=== PATIENT | female | born 1980 | race Caucasian/White ===

== ENCOUNTER 2016-05-28 02:20 | Emergency (ER) | payer OTHER ==
[~2016-05-28 02:20] MED LIST: CARAFATE 1 GM TA1 GM PO; LANOXIN TAB0.125 MG PO; LOPRESSOR 25 MG25 MG PO; PREVACID30 MG PO; PROZAC40 MG PO; TRILEPTAL600 MG PO; VITAMIN D50000 UNIT PO; VITAMIN E400 UNI5 PO; ZANTAC150 MG PO
[2016-05-28 04:52] LABS: HEMOGLOBIN 11.5 gm/dl (12.3-15.3); RED BLOOD COUNT 4.94 M/UL (4.00-5.10); WHITE BLOOD COUNT 13.2 K/UL (4.5-11.0)
[2016-05-28 04:54] LABS: BUN/CREATININE RATIO 11 (0-10)
== END 2016-05-28 09:00 | disposition home or self-care (01) ==
LOC: ER1 02:20
PROVIDERS: Physician Assistant
DX: E86.0 Dehydration (principal); E87.6 Hypokalemia; R10.30 Lower abdominal pain, unspecified; Z88.1 Allergy status to other antibiotic agents; Z88.5 Allergy status to narcotic agent; Z88.6 Allergy status to analgesic agent; Z88.8 Allergy status to other drugs, medicaments and biological substances
CPT/HCPCS: 36415; 80053; 81001; 83690; 83735; 85025; 93005; 96374; 96375; 96376; 99284; C9113; J0780; J2270; J2405; J2550

== ENCOUNTER 2016-06-02 15:39 | Emergency (ER) | payer OTHER | END 2016-06-02 15:45 | disposition left against medical advice (07) | LOC: ER1 15:39 | DX: Z53.21 Procedure and treatment not carried out due to patient leaving prior to being seen by health care provider (principal) ==

== ENCOUNTER 2016-08-05 12:56 | Emergency (ER) | payer OTHER | END 2016-08-05 13:27 | disposition home or self-care (01) | LOC: ER1 12:56 | DX: Z53.21 Procedure and treatment not carried out due to patient leaving prior to being seen by health care provider (principal) ==